=== PATIENT | male | born 1960 | race Caucasian/White ===

== ENCOUNTER 2021-08-25 08:48 | Outpatient (CLI) | payer OTHER | END 2021-08-25 09:00 | disposition home or self-care (01) | LOC: RAD 08:48 | PROVIDERS: ATTEND Internal Medicine Hematology & Oncology | DX: M25.552 Pain in left hip (principal); M25.551 Pain in right hip; M76.22 Iliac crest spur, left hip; C79.51 Secondary malignant neoplasm of bone; C61 Malignant neoplasm of prostate ==

== ENCOUNTER 2021-08-31 08:42 | Outpatient (CLI) | payer OTHER | END 2021-08-31 08:49 | disposition home or self-care (01) | LOC: NUCLEAR 08:42 | PROVIDERS: ATTEND Internal Medicine Hematology & Oncology | DX: C61 Malignant neoplasm of prostate (principal); C18.7 Malignant neoplasm of sigmoid colon; C79.51 Secondary malignant neoplasm of bone | CPT/HCPCS: 78815; A9552 ==

== ENCOUNTER 2023-07-19 07:28 | Outpatient (CLI) | payer OTHER | END 2023-07-19 07:31 | disposition home or self-care (01) | LOC: NUCLEAR 07:28 | PROVIDERS: ATTEND Internal Medicine Hematology & Oncology | DX: C61 Malignant neoplasm of prostate (principal) | CPT/HCPCS: 78815; A9552 ==

== ENCOUNTER 2024-11-19 07:57 | Outpatient (CLI) | payer OTHER | END 2024-11-19 08:05 | disposition home or self-care (01) | LOC: MRI 07:57 | PROVIDERS: ATTEND Psychiatry & Neurology Clinical Neurophysiology | DX: I63.30 Cerebral infarction due to thrombosis of unspecified cerebral artery (principal) | CPT/HCPCS: 70551 ==